=== PATIENT | female | born 1990 | race Caucasian/White ===

== ENCOUNTER 2021-04-09 15:57 | Emergency (ER) | payer OTHER, SELFPAY ==
--- NOTE | ~2021-04-09 | XR_ITS ---
EXAMINATION: PORTABLE CHEST 1 VIEW CLINICAL INFORMATION: Fever, chills, cough rule out pneumonia . COMPARISON: 12/18/2019. TECHNIQUE: Portable frontal view of the chest was obtained. FINDINGS: The lungs are well expanded. No focal infiltrate, effusion, edema, or pneumothorax. Cardiac and mediastinal silhouettes are within normal limits for technique. No acute bony abnormality seen. XR/XR chest 1V IMPRESSION: No evidence of acute disease.
[2021-04-09 16:52] VITALS: BP 127/66; PULSE 76; RESP 20; TEMP 37.2; O2SAT 100; BMI 23.8
--- NOTE | 2021-04-09 17:50 | ED.GENADULT ---
HPI - General Adult General Chief complaint: Upper Respiratory Symptoms Stated complaint: CP, SOB, COUGH Time Seen by Provider: 04/09/21 17:24 Source: patient Mode of arrival: ambulatory Limitations: language barrier (Japanese speaking only, air and water tester used) History of Present Illness HPI narrative: 30-year-old female who presents emergency department for evaluation of rhinorrhea, sore throat, subjective fever, chills, chest pain, shortness of breath and a cough. Patient states that she got sick yesterday and her symptoms have gotten worse. She complains of midsternal chest pain which is a sharp pain which is worse with breathing and with coughing. The pain is 5/10 at its worst. She states she has a cough which is persistent but nonproductive. She also is complaining of a headache which is located on top of her head, the pain is constant, sharp stabbing pain which is 10/10. She states she has had no appetite and has only been able to drink sips of fluid since the start of her symptoms. She is feeling weak and lightheaded. She states that she has diffuse body aches as well. She states that her 2 children are sick but their symptoms are mild compared to the patient's. The patient has not had a COVID-19 infection. She has not had a COVID-19 vaccination. Related Data Previous Rx's Medication Instructions Recorded metoclopramide HCl [Reglan] 10 mg PO Q6H PRN #14 tab 04/09/21 Allergies Allergy/AdvReac Type Severity Reaction Status Date / Time No Known Allergies Allergy Verified 04/09/21 16:51 [No Known Allergies*] Review of Systems Review of Systems: Yes all other systems are reviewed and are negative [facility] Past Medical History [facility] Narrative: Past medical hist of her asthma. She smokes 2-3 cigarettes per day x4 years. She denies alcohol and drug use. She is . She has 2 children that are 6 and 7 years old may have mild viral-like symptoms. Medical History (Updated 04/09/21 @ 19:21 by Dev Schulz MD) No known health problems Social History Social History Advance Directives: No Advance Directives Information Provided: Yes Patient : No Physical Exam Vital Signs: Vital Signs: Last Vital Signs Temp 98.9 F 04/09/21 16:52 Pulse 76 04/09/21 16:52 Resp 20 04/09/21 16:52 BP 127/66 04/09/21 16:52 Pulse Ox 100 04/09/21 16:52 Body Mass Index 23.8 Const: General: cooperative and other (Appears uncomfortable) Nutritional Appearance: thin Orientation/consciousness: oriented to person and oriented to place Limitations: no limitations HENMT: Head: Yes normal to inspection, Yes normocephalic and Yes atraumatic Ears: external ears normal General nose exam: Normal external nose present Face and sinus: Yes normal facial exam Mouth: Normal oral and palatal mucosa present Throat: Yes other (Posterior erythema with no exudate) Eyes: Periorbital: periorbital findings normal Eyelids: Yes eyelids normal Conjunctivae: conjunctivae normal Sclerae: sclerae normal Corneas: corneas normal Pupils: Equal, round and reactive pupils present Direct Ophthalmoscopy: normal light reflex Neck: Neck: Yes full ROM, Yes no lymphadenopathy, Yes no meningeal signs, Yes trachea midline and Yes supple Chest: Chest palpation & inspection: normal inspection of the chest and normal palpation of entire chest wall Resp: Effort & Inspection: normal respiratory effort and able to speak in complete sentences Auscultation: wheezes (Mild wheezing at the end of expiration) Cardio: Rate: regular rate Rhythm: regular rhythm Heart sounds: S1 normal heart sound present, S2 normal heart sound present and no murmurs GI: Inspection: Yes normal to inspection Palpation (GI): Soft to palpation, nontender, no guarding, not rigid and No hepatosplenomegaly present : General: Yes no CVA tenderness Back/Spine/Pelvis: Back: no CVA tenderness Cervical Spine: normal cervical lordosis Thoracic/Lumbar Spine: thoracic and lumbar spine normal to inspection Skin: Lesions: no lesions Rashes: no rashes Wounds: no wounds Neuro: General: oriented to person, oriented to place and no meningeal signs Cranial nerves: Yes CN's II-XII intact bilaterally and Yes Equal, round and reactive pupils present Cognition (Neuro): normal cognition Motor exam (neuro): 5/5 motor strength present throughout Extrem: General: Yes normal to inspection and Yes full ROM Psych: Appearance: well kempt Mental Status: mental status grossly normal Speech and movement: Normal speech and movement present Affect: normal affect Attitude: cooperative Thought process: Normal thought process present Thought content: Normal thought content present Course Course Course Narrative: year-old female with a history of asthma who presents with a viral-like illness times 24 hours. Patient is having pleuritic chest pain with fever, chills, anorexia, myalgias, nonproductive cough and sore throat. Patient's vital signs are stable with the O2 saturation 100% on room air. Given her anorexia and poor oral intake and her severe headache, I did order a COVID-19, influenza and RSV swab. Patient will be treated with normal saline x1 L. her headache and nausea will be treated with Reglan 10 mg IV, Benadryl 50 mg IV and Toradol 30 mg IV. 1917: Patient is feeling better after the above treatment. Chest x-ray revealed no evidence of pneumonia. The patient's COVID-19, influenza and RSV tests were negative. I did discuss this with the patient. Patient's presentation is consistent with an acute viral syndrome. I did tell her that there is a possibility of a false COVID-19 test as well. She was advised to stay home and follow the COVID-19 instructions. She was advised to take the following medications together for her headache: Reglan 10 mg, Benadryl 50 mg, ibuprofen 600 mg. She also advised to take Tylenol for her fevers. She was given printed and verbal instructions and discharged home. She was given a note not return to work until he 04/16/2021. Medical Decision Making Lab Data Labs: Lab Results 04/09/21 Range/Units Unknown Coronavirus (PCR) NEGATIVE (Negative) Influenza Type A (PCR) NEGATIVE (Negative) Influenza Type B (PCR) NEGATIVE (Negative) RSV RNA Qual (PCR) NEGATIVE (Negative) Discharge Plan Discharge Clinical Impression: Acute viral syndrome, Acute upper respiratory infection Patient Disposition: Home, Self-Care Instructions: COVID-19 (Coronavirus Disease 2019) (ED) Additional Instructions: For your headaches and nausea take the following 3 medications together every 6 hours as needed: Reglan 10 mg , 1 pill orally Benadryl 25 mg, 1 pill orally Ibuprofen 200 mg, 3 pills orally Take Tylenol (acetaminophen) 500 mg pills, 2 pills every 4 to 6 hours as needed for pain or fever. Follow-up with your doctor in 2 days. Please return to the emergency department if your symptoms get worse or if you develop any symptoms that are concerning to you. No work until 04/16/2021 Follow the COVID-19 instructions Prescriptions: New metoclopramide HCl [Reglan] 10 mg tablet 10 mg PO Q6H PRN (Reason: nausea and vomiting) Qty: 14 RF: 0 Stand Alone Forms: Work/School Release Print Language: Japanese
[2021-04-09 18:03] LABS: Influenza A PCR NEGATIVE (Negative); Influenza B PCR NEGATIVE (Negative); Resp Syncy Virus RNA Qual PCR NEGATIVE (Negative); SARS COV2 PCR INHOUSE NEGATIVE (Negative)
[2021-04-09] MEDS: 0.9 % Sodium Chloride 1,000 ML 999 ML IV (18:41)
[2021-04-09] MEDS: diphenhydrAMINE HCL 50 MG/ML VIAL IVPUSH (18:42)
[2021-04-09] MEDS: Ketorolac Tromethamine 30 MG/ML VIAL IVPUSH (18:43)
[2021-04-09] MEDS: Metoclopramide HCl 10 MG/2 ML VIAL IVPUSH (18:45)
--- NOTE | 2021-04-09 18:45 | PC.NURSE ---
IV inserted and pt medicated for headache.
== END 2021-04-09 20:04 | disposition home or self-care (01) ==
PROVIDERS: Emergency Provider Emergency Medicine Emergency Medical Services
DX: B34.9 Viral infection, unspecified (principal); J06.9 Acute upper respiratory infection, unspecified; R05 Cough; R07.81 Pleurodynia; Z20.822 Contact with and (suspected) exposure to COVID-19; Z79.899 Other long term (current) drug therapy
CPT/HCPCS: 0241U; 36415; 71045; 96365; 96375; 99283; 99284; J1200; J1885; J2765

== ENCOUNTER 2022-01-09 09:56 | Emergency (ER) | payer OTHER, SELFPAY ==
--- NOTE | ~2022-01-09 | CT_ITS ---
EXAMINATION: CT ABDOMEN AND PELVIS WITH CONTRAST CLINICAL INFORMATION: Lower abdominal pain, nausea and diarrhea for one week COMPARISON: Previous CT of the abdomen and pelvis December 2019 TECHNIQUE: Multidetector volumetric images were obtained from the superior aspect of the liver through the pubic symphysis following administration 85 mL of Omnipaque 350 intravenous contrast. Sagittal and coronal reformatted images were obtained on the technologist's workstation. Oral contrast: Yes This CT examination was performed using dose optimization techniques as appropriate, variously including the following: *Automated exposure control *Adjustment of mA and/or kV according to patient size (this includes techniques or standardized protocols for targeted exams where dose is matched to indication/reason for exam; i.e. extremities or head) *Use of iterative reconstruction technique DLP: 440 mGy-cm FINDINGS: LUNG BASES: The visualized lung bases are unremarkable. LIVER, GALLBLADDER, AND BILIARY TREE: The liver is normal in size, shape, and attenuation. No focal hepatic lesion or biliary ductal dilatation is present. The gallbladder is unremarkable with no evidence of radiopaque gallstones, gallbladder wall thickening, or obvious pericholecystic inflammatory changes. PANCREAS: Unremarkable. SPLEEN: Unremarkable. ADRENAL GLANDS: Unremarkable. KIDNEYS AND URETERS: The kidneys are normal in size, shape, and attenuation. No hydronephrosis, hydroureter, or calculi seen. No perinephric stranding. BLADDER: Unremarkable. GASTROINTESTINAL TRACT: There is a linear echogenic density in the cecum measuring 2 x 14 mm for example coronal reconstructed image 24. Appearance is questionable for surgical clip versus ingested foreign body. The small and large bowel are otherwise unremarkable. The appendix is normal. ABDOMINAL WALL: No significant hernia is appreciated. LYMPH NODES: Normal. VASCULAR: Unremarkable. PELVIC VISCERA: There are prominent pelvic vessels questionable for pelvic congestion. OSSEOUS STRUCTURES: Unremarkable. CT/CT abdomen pelvis w con IMPRESSION: 2 x 14 mm linear echogenic density in the cecum questionable for surgical clip versus ingested foreign body. Clinical correlation recommended. No inflammatory changes of the bowel, fluid or free air is seen. Prominent pelvic veins suggestive of pelvic congestion. Fleischner guidelines were followed.
[2022-01-09 10:04] VITALS: BP 110/77; PULSE 81; RESP 16; TEMP 36.8; O2SAT 99; BMI 25.5
[2022-01-09 10:38] VITALS: BP 120/57; PULSE 58; RESP 18; O2SAT 98
[2022-01-09 11:01] LABS: MANUAL DIFF FLAG NO
[2022-01-09 11:03] LABS: Basophils Percent Auto 0.3 % (0-2); Eosinophils Absolute Auto 0.2 X10*3/uL (0.0-0.4); Eosinophils Percent Auto 2.5 % (0-4); Hemoglobin 12.8 g/dl (12.0-16.0); Imm Gran Abs Auto 0.01 X10*3/uL (0.00-0.03); Imm Gran Pct Auto 0.1 % (0.0-0.4); Lymphocytes Absolute Auto 2.4 X10*3/uL (1.2-4.9); Lymphocytes Percent Auto 35.8 % (20-40); Mean Corpuscular HGB Conc 32.8 g/dl (31.0-35.0); Mean Corpuscular Hemoglobin 30.6 pg (27.0-33.0); Mean Corpuscular Volume 93.3 fL (80.0-98.0); Mean Platelet Volume 11.1 fL (9.4-12.3); Monocytes Absolute Auto 0.3 X10*3/uL (0.1-1.2); Monocytes Percent Auto 3.9 % (2-11); Neutrophils Absolute Auto 3.9 x10*3/uL (2.0-8.3); Neutrophils Percent Auto 57.4 % (45-73); Platelet Count 179 X10*3/uL (160-400); Red Blood Count 4.18 X10*6/uL (4.20-5.50); Red Cell Distribution Width 12.7 % (11.0-16.0); White Blood Count 6.7 X10*3/uL (4.8-10.8)
[2022-01-09 11:24] LABS: Alanine Aminotransferase 8 U/L (0-31); Albumin Level 3.8 g/dL (3.5-5.0); Alkaline Phosphatase 35 U/L (39-117); Anion Gap 7 (12-20); Aspartate Amino Transferase 15 U/L (5-31); Bilirubin Total 0.5 mg/dL (0.0-1.0); Blood Urea Nitrogen 11 mg/dL (9-16); Calcium 9.3 mg/dL (8.4-10.2); Carbon Dioxide 28 mmol/L (22-29); Chloride 108 mmol/L (96-108); Creatinine Clr Calc Pharmacy 98.5; Estimated Glomerular Filt Rate > 60; Glucose Random 94 mg/dL (60-115); Lipase 265 U/L (8-78); Magnesium 1.9 mg/dL (1.6-2.6); Potassium 4.4 mmol/L (3.3-5.1); Prothrombin Time 11.4 SEC (9.9-13.0); Sodium 139 mmol/L (135-145); Total Protein 6.2 g/dL (6.5-8.0)
[2022-01-09 11:27] LABS: HCG Quantitative < 2 mIU/mL
--- NOTE | 2022-01-09 12:31 | ED.ABDPAIN ---
HPI - Abdominal Pain General Chief Complaint: Abdominal Pain Stated Complaint: abd pain - sent from [facility] Time Seen by Provider: 01/09/22 10:05 Source: patient Mode of arrival: ambulatory Limitations: no limitations History of Present Illness HPI narrative: 31-year-old female with a past medical history of asthma, urinary calculi and tubal ligation presenting to the ED with complaints of lower abdominal pain and lower back pain for the past week with associated diarrhea and she had some nausea. She denies any fevers, chills, dizziness, headaches, neck pain/stiffness, trouble swallowing or breathing, sore throat, cough, chest pain or shortness of breath, on vomiting, recent travel or sick contacts, recent antibiotic usage, possible bad food exposure, dysuria, hematuria, dysuria, thoughts of STDs, abnormal vaginal, rashes or any other symptoms complaints or concerns at this time. Patient was seen at the urgent care prior to arrival and she had a a urine which she came with the results which was negative and she had a urine negative test as well MD elicited complaint: abdominal pain Pertinent past history: other (See above) Onset (ago): week(s) (1) Pain Consistency: constant Location: RLQ, LLQ and suprapubic Severity: mild Quality: aching Radiation: back Exacerbating factors: nothing Relieving factors: nothing Associated symptoms: nausea and diarrhea Related Data Patient : No Previous Rx's Medication Instructions Recorded metoclopramide HCl 10 mg tablet 10 mg PO Q6H PRN #14 tab 04/09/21 (Reglan) dicyclomine 20 mg tablet 20 mg PO BID #20 tab 01/09/22 ondansetron 4 mg disintegrating 4 mg PO Q6-8H PRN #14 tab 01/09/22 tablet Allergies Allergy/AdvReac Type Severity Reaction Status Date / Time No Known Allergies Allergy Verified 01/09/22 10:09 [No Known Allergies*] Review of Systems Review of Systems Constitutional : No Fever, No Chills, No Night Sweats, No Fatigue, No Malaise Cardiovascular : No Chest Pain, No SOB Respiratory : No Cough, No Sputum, No Wheezing, No Dyspnea Gastrointestinal : + Nausea, No Vomiting, No Diarrhea, + abdominal Pain, No Hematochezia, No Melena Genitourinary : No irregular bleeding, No Dysuria, No Urinary Frequency, No Hematuria,No Urinary Incontinence, No Urgency, No Flank Pain Musculoskeletal : No joint pain, No Myalgias, No Joint Swelling Skin : No Skin Lesions, No rash Neuro : No Weakness, No Numbness, No Paresthesias, No Loss of Consciousness, No Dizziness, No Headache Heme/Lymph: No Lymphadenopathy Endocrine : No Temperature Intolerance Yes all other systems are reviewed and are negative [facility] Past Medical History Attestation statement: The following information was validated with the patient. Medical History Asthma No known health problems Social History Social History Advance Directives: No Advance Directives Information Provided: No Patient : No Physical Exam ED Vital Signs: Vital Signs - 24 hr 01/09/22 10:04 01/09/22 10:38 Temperature 98.3 F Pulse Rate 81 58 Respiratory Rate 16 18 Blood Pressure 110/77 120/57 L Pulse Oximetry 99 98 BMI result Body Mass Index 25.5 Vital signs have been reviewed and all within normal limits Appearance: Alert. Oriented X3. No acute distress. Head: Normal external exam. Normocephalic. Eyes: PERRLA. EOMI. Conjunctiva and sclera normal. Eyelids normal. ENT: Pharynx normal. Uvula midline. Moist mucous membranes. Neck: Normal inspection. Neck supple. FROM. No adenopathy. No meningeal signs. CVS: Normal heart rate and rhythm. Heart sound normal. No murmurs noted. Pulses normal throughout. Respiratory: No respiratory distress. Painless inspiration. Breath sounds normal. No wheezes/rales/rhonchi noted. Chest nontender. No accessory muscle usage noted or decreased air movement noted. Abdomen: Soft and mild tenderness palpation to the right lower quadrant/suprapubic/left lower quadrant aspect of the abdomen Nondistended. No guarding. No rigidity. Bowel sounds normal in all 4 quadrants. No distention noted. No organomegaly noted. No visible injury noted. No rebound tenderness. Negative Rovsing sign. Negative obturator's sign. Negative psoas sign. Negative Carson sign. Back: No CVA tenderness. Full range of motion noted. Skin: Skin warm and dry. Normal skin color. Normal skin turgor. No rashes/lesions/lacerations noted. Extremities: Extremities exhibit normal range of motion. Extremities nontender. Neuro: Oriented X 3. No motor deficit. No sensory deficit. Reflexes normal. Normal steady gait. CN's II-XII intact bilaterally? Vascular: Normal pulses throughout. No cyanosis noted to fingernails or toenails Course Course Course Narrative: 10am - 31-year-old female with a past medical history of asthma, urinary calculi and tubal ligation presenting to the ED with complaints of lower abdominal pain and lower back pain for the past week with associated diarrhea and she had some nausea. Plan: Labs, UA, UHCG and a CT scan abdomen pelvis with IV contrast and provide some IV fluids and re-evaluate Reevaluation(s) Reevaluation #1: - Labs reviewed and patient anion gap 7. Alkaline phosphate 35. Total protein 6.2. Lipase 265. Patient negative for by blood. Otherwise all other labs are within normal limits - patient refused to give a repeat urine due to she reported that she had the urine at the [facility] [place] and was negative and she showed me the results and it was negative. Therefore I explained to her that we should at least do a gonorrhea chlamydia sample she does not have any thoughts of STDs therefore we will not treat at this time - CT scan abdomen and pelvis with IV contrast revealed a 2 x 14 mm echogenic density in the cecum questionable for surgical clip versus ingested foreign body. Patient denies any ingestion of foreign body this could possibly be her tubal ligation clip therefore explained to her that she needs to use protection due to if it moves she is at risk for . Otherwise it revealed prominent pelvic vein suggestive of pelvic congestion no other acute processes. Therefore patient does not want any more labs or imaging as she reports that she was here for a long time due to CT scan was delayed today therefore will DC home with symptomatic treatment and instructions return if any new or worsening symptoms to follow up with primary care provider/OBGYN. Patient understands agrees with this plan Time: 15:28 [facility] - Abdominal Pain Medical Records Attestation: I reviewed the patient's medical records. Lab Data Attestation: I reviewed the patient's lab results. Result diagrams: 01/09/22 10:56 01/09/22 10:56 Labs: Lab Results 01/09/22 01/09/22 01/09/22 Range/Units 10:56 10:56 10:56 WBC 6.7 (4.8-10.8) X10*3/uL RBC 4.18 L (4.20-5.50) X10*6/uL Hgb 12.8 (12.0-16.0) g/dl Hct 39.0 (37.0-47.0) % MCV 93.3 (80.0-98.0) fL MCH 30.6 (27.0-33.0) pg MCHC 32.8 (31.0-35.0) g/dl RDW 12.7 (11.0-16.0) % Plt Count 179 (160-400) X10*3/uL MPV 11.1 (9.4-12.3) fL Immature Gran % (Auto) 0.1 (0.0-0.4) % Neut % (Auto) 57.4 (45-73) % Lymph % (Auto) 35.8 (20-40) % [place] % (Auto) 3.9 (2-11) % Eos % (Auto) 2.5 (0-4) % Baso % (Auto) 0.3 (0-2) % Lymph # (Auto) 2.4 (1.2-4.9) X10*3/uL [place] # (Auto) 0.3 (0.1-1.2) X10*3/uL Eos # (Auto) 0.2 (0.0-0.4) X10*3/uL Baso # (Auto) 0.0 (0.0-0.2) X10*3/uL Abs Immat Gran (auto) 0.01 (0.00-0.03) X10*3/uL Absolute Neuts (auto) 3.9 (2.0-8.3) x10*3/uL Absolute Nucleated RBC 0.000 (0.0-0.012) X10*3/uL Nucleated RBC % (auto) 0.0 (0.0-0.2) /100WBC PT 11.4 (9.9-13.0) SEC INR 1.0 (0.9-1.1) Sodium 139 (135-145) mmol/L Potassium 4.4 (3.3-5.1) mmol/L Chloride 108 (96-108) mmol/L Carbon Dioxide 28 (22-29) mmol/L Anion Gap 7 L (12-20) BUN 11 (9-16) mg/dL Creatinine 0.73 (0.5-1.4) mg/dL Estim Creat Clear Calc 98.5 Estimated GFR > 60 Random Glucose 94 (60-115) mg/dL Calcium 9.3 (8.4-10.2) mg/dL Magnesium 1.9 (1.6-2.6) mg/dL Total Bilirubin 0.5 (0.0-1.0) mg/dL AST 15 (5-31) U/L ALT 8 (0-31) U/L Alkaline Phosphatase 35 L (39-117) U/L Total Protein 6.2 L (6.5-8.0) g/dL Albumin 3.8 (3.5-5.0) g/dL Lipase 265 H (8-78) U/L Beta HCG, Quant < 2 mIU/mL Imaging Data CT scan abdomen pelvis with IV contrast: Attestation: I personally reviewed and interpreted this imaging study as follows: Radiologist's impression: FINDINGS: LUNG BASES: The visualized lung bases are unremarkable.? LIVER, GALLBLADDER, AND BILIARY TREE: The liver is normal in size, shape, and attenuation. No focal hepatic lesion or biliary ductal dilatation is present. The gallbladder is unremarkable with no evidence of radiopaque gallstones, gallbladder wall thickening, or obvious pericholecystic inflammatory changes.? PANCREAS: Unremarkable.? SPLEEN: Unremarkable.? ADRENAL GLANDS: Unremarkable.? KIDNEYS AND URETERS: The kidneys are normal in size, shape, and attenuation. No hydronephrosis, hydroureter, or calculi seen. No perinephric stranding. ? BLADDER: Unremarkable.? GASTROINTESTINAL TRACT: There is a linear echogenic density in the cecum measuring 2 x 14 mm for example coronal reconstructed image 24. Appearance is questionable for surgical clip versus ingested foreign body. The small and large bowel are otherwise unremarkable. The appendix is normal. ABDOMINAL WALL: No significant hernia is appreciated.? LYMPH NODES: Normal. VASCULAR: Unremarkable. PELVIC VISCERA: There are prominent pelvic vessels questionable for pelvic congestion.? OSSEOUS STRUCTURES: Unremarkable.? CT/CT abdomen pelvis w con IMPRESSION: 2 x 14 mm linear echogenic density in the cecum questionable for surgical clip versus ingested foreign body. Clinical correlation recommended. No inflammatory changes of the bowel, fluid or free air is seen. Prominent pelvic veins suggestive of pelvic congestion. ? Fleischner guidelines were followed. Discharge Plan Discharge Clinical Impression: Abdominal pain, Abnormal computed tomography of abdomen and pelvis, Foreign body in cecum, Pelvic congestion Patient Disposition: Home, Self-Care Instructions: Abdominal Pain (ED) Additional Instructions: Usted tiene resultados de laboratorio pendientes si alguno es positivo, ser? contactado. Regrese si hay s?ntomas nuevos o que empeoran. Arjun un seguimiento con corral proveedor de atenci?n primaria y ginec?logo obstetra para detectar un posible clip de ligadura de trompas que se haya movido. Use protecci?n con el coito en chivo de que. You have pending lab results if any are positive you will be contacted. Return if any new or worsening symptoms. Follow up with her primary care provider and education associate for possible tubal ligation clip that has moved. Use protection with intercourse in case. Prescriptions: New dicyclomine 20 mg tablet 20 mg PO BID Qty: 20 0RF ondansetron 4 mg tablet,disintegrating 4 mg PO Q6-8H PRN (Reason: nausea and vomiting) Qty: 14 0RF No Action metoclopramide HCl [Reglan] 10 mg tablet 10 mg PO Q6H PRN (Reason: nausea and vomiting) Qty: 14 0RF Referrals: Raymundo Siddiqui MD [Physician] - 2 days Stand Alone Forms: Work/School Release Print Language: Thai
[2022-01-09] MEDS: iohexoL 350 MG/ML 100 ML INFUS..BTL IV (12:47)
[2022-01-09] MEDS: Ketorolac Tromethamine 30 MG/ML VIAL IVPUSH (13:48)
[2022-01-09] MEDS: ondansetron HCL 4 MG/2 ML VIAL IVPUSH (13:48)
[2022-01-09 16:06] LABS: Appearance Urine CLEAR; Color Urine YELLOW; Glucose Urine UA NEG (NEG); Leukocyte Esterase Urine NEG (NEG); Nitrite Urine NEG (NEG); PH 6.5 (5.0-8.0); Urine Blood NEG (NEG); Urine Ketones 15 MG/DL (NEG); Urine Protein NEG (NEG-TRACE)
[2022-01-09 18:17] LABS: CT PCR NOT DETECTED (Not Detect.); NG PCR NOT DETECTED (Not Detect.)
== END 2022-01-09 16:02 | disposition home or self-care (01) ==
PROVIDERS: Physician Assistant Medical; Emergency Provider Emergency Medicine
DX: R10.9 Unspecified abdominal pain (principal); N94.89 Other specified conditions associated with female genital organs and menstrual cycle; R93.5 Abnormal findings on diagnostic imaging of other abdominal regions, including retroperitoneum; T18.4XXA Foreign body in colon, initial encounter; Y99.9 Unspecified external cause status; Z98.51 Tubal ligation status; Z87.442 Personal history of urinary calculi
CPT/HCPCS: 36415; 74177; 80053; 81003; 83690; 83735; 84702; 85025; 85610; 87491; 87591; 96374; 96375; 99284; 99285; J1885; J2405; Q9967

== ENCOUNTER 2023-10-03 17:32 | Emergency (ER) | payer OTHER, SELFPAY ==
--- NOTE | ~2023-10-03 | XR_ITS ---
EXAMINATION: Bilateral ankle x-ray CLINICAL INFORMATION: Pain. Fall. COMPARISON: None. TECHNIQUE: 3 views of each ankle FINDINGS: Left: Bone alignment is normal. No fracture or dislocation. The ankle mortise is normal. There may be lateral soft tissue swelling. Right: Bone alignment is normal. No fracture or dislocation. The ankle mortise is normal. Lateral soft tissue swelling. XR/XR ankle RT min 3V IMPRESSION: Lateral soft tissue swelling. No fracture or dislocation.
--- NOTE | ~2023-10-03 | XR_ITS ---
EXAMINATION: Bilateral ankle x-ray CLINICAL INFORMATION: Pain. Fall. COMPARISON: None. TECHNIQUE: 3 views of each ankle FINDINGS: Left: Bone alignment is normal. No fracture or dislocation. The ankle mortise is normal. There may be lateral soft tissue swelling. Right: Bone alignment is normal. No fracture or dislocation. The ankle mortise is normal. Lateral soft tissue swelling. XR/XR ankle LT min 3V IMPRESSION: Lateral soft tissue swelling. No fracture or dislocation.
[2023-10-03 18:08] VITALS: BP 100/63; PULSE 73; RESP 18; O2SAT 100; BMI 24.6
[2023-10-03] MEDS: Ketorolac Tromethamine 30 MG/ML VIAL IM (19:24)
--- NOTE | 2023-10-03 19:44 | ED.GENADULT ---
HPI - General Adult General Chief complaint: Extremity Injury, Lower Stated complaint: Ankle inj at work Time Seen by Provider: 10/03/23 18:47 Source: patient Mode of arrival: ambulatory Limitations: no limitations History of Present Illness HPI narrative: This is a 33-year-old female presenting to the emergency department for bilateral ankle pain x2 days. Yesterday she rolled her right ankle and today she rolled her left ankle. She reports she rolled her ankle getting out of her work van. 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 Denies numbness, tingling, fevers, chills. Related Data Previous Rx's Medication Instructions Recorded metoclopramide HCl 10 mg tablet 10 mg PO Q6H PRN nausea and 04/09/21 (Reglan) vomiting #14 tabs dicyclomine 20 mg tablet 20 mg PO BID abdominal pain #20 01/09/22 tabs ondansetron 4 mg disintegrating 4 mg PO Q6-8H PRN nausea and 01/09/22 tablet vomiting #14 tabs ketorolac 10 mg tablet 10 mg PO TID PRN pain 5 days #15 10/03/23 tabs Allergies Allergy/AdvReac Type Severity Reaction Status Date / Time No Known Allergies Allergy Verified 01/09/22 10:09 [No Known Allergies*] Review of Systems Review of Systems: Constitutional : No Weight loss, No Fever, No Chills, No Fatigue, No Malaise ENT/Mouth : No sore throat, No Rhinorrhea Eyes: No Eye Pain, No Swelling, No Redness Cardiovascular : No Chest Pain, No SOB, No Dyspnea on Exertion, No Orthopnea, No Edema, No Palpitations Respiratory : No Cough, No Sputum, No Wheezing Gastrointestinal : No Nausea, No Vomiting, No Diarrhea, No Constipation, No abdominal Pain, No Hematochezia, No Melena Genitourinary : No Dysuria, No Urinary Frequency, No Hematuria, Musculoskeletal : + joint pain, No Myalgias, + Joint Swelling Skin : No Skin Lesions, No rash Neuro : No Weakness, No Numbness, No Dizziness, No Headache Psych : No Anxiety/Panic, No Depression All other systems reviewed and are negative PMFSH Past Medical History Attestation statement: The following information was validated with the patient. Source: old records reviewed and nursing notes reviewed Medical History Asthma No known health problems Social History Social History Advance Directives: No Advance Directives Information Provided: No Physical Exam ED Vital Signs: Vital Signs - 24 hr 10/03/23 18:08 Pulse Rate 73 Respiratory Rate 18 Blood Pressure 100/63 Pulse Oximetry 100 Oxygen Delivery Method Room Air BMI result Body Mass Index 24.6 vss Appearance: Alert.? Oriented X3.? No acute distress.? Head: Normocephalic, atraumatic, no step-offs or deformities Eyes: Pupils equal, round and reactive to light.? Neck: Normal inspection.? Neck supple.? CVS: Normal heart rate and rhythm.? Pulses normal.? Respiratory: No respiratory distress.? Breath sounds normal.? Abdomen: Soft and nontender.? Skin: Skin warm and dry.? Normal skin color.? Normal skin turgor.? Extremities: No lower extremity edema.? No calf ttp. 5/5 strength to bilateral upper and lower extremities + swelling to b/l ankles on lateral side. Normal sensation distally. Full painless ROM. 2+ DP,AT,PT equal and b.l. Ambulatory w/ steady gait normal coordination. Neuro: Oriented X 3.? No motor deficit.? No sensory deficit. CN 2-12 intact Course Reevaluation(s) Reevaluation #1: Lateral soft tissue swelling bilaterally. No fracture dislocation. Will discharge with ortho consult in [facility]. Educated patient on diagnosis and treatment plan, answered all question, patient verbalizes understanding. At this time patient will be discharged home, advised to return with new or worsening symptoms. Educated on worrisome signs and symptoms and when to return. At this time I feel comfortable discharge home. Time: 19:50 Medications Administered Discontinued Medications Generic Name Dose Route Start Last Admin Trade Name Freq PRN Reason Stop Dose Admin Ketorolac Tromethamine 30 mg 10/03/23 19:16 10/03/23 19:24 Ketorolac Tromethamine 30 Mg/Ml Vial IM 10/03/23 19:17 30 mg ONCE ONE Administration Medical Decision Making Medical Decision Making [facility] Narrative: 1929 33 yo f presents s/p rolling b/l ankles. PE- 5/5 strength to bilateral upper and lower extremities + swelling to b/l ankles on lateral side. Normal sensation distally. Full painless ROM. 2+ DP,AT,PT equal and b.l. Ambulatory w/ steady gait normal coordination. Likely sprain/strain. Unlikely fx/dislocation. NV compromise, threat to limb Plan- imaging Differential Diagnosis Differential Diagnoses: The differential diagnosis associated with the presentation includes Likely sprain/strain. Unlikely fx/dislocation. NV compromise, threat to limb Admission/Observation Consideration of admission/observation: Escalation of care including admission/observation considered unlikley Independent Interpretation I performed an independent interpretation of an: Plain X-Ray (XR/XR ankle RT min 3V IMPRESSION: Lateral soft tissue swelling. No fracture or dislocation.) Radiology Impression Discussion of test interpretation with radiology: I have reviewed the radiologist's reading. Discharge Plan Discharge Clinical Impression: Ankle sprain and strain Patient Disposition: Home, Self-Care Instructions: Ankle Sprain (ED), Ankle Sprain (DC), R.I.C.E. Treatment (ED) Additional Instructions: Take your medications as prescribed. If you were prescribed antibiotics today, it is important that you take your medication to their entirety, do not skip any doses, do not finish them early. Follow-up with your primary care provider this week. Return to the emergency department with new or worsening symptoms. Such as fevers, chills, chest pain, shortness of breath, nausea, vomiting, dizziness, headache, vision changes, lethargy In case of emergency call 911 Toradol has been sent to your pharmacy, you tolerated this well in the department. Please take this as prescribed do not take this with ibuprofen, or other NSAIDs, do not mix this with alcohol. Side effects of this medication including increased risk for bleeding and possible kidney injury. XR/XR ankle RT min 3V IMPRESSION: Lateral soft tissue swelling. No fracture or dislocation. Prescriptions: New ketorolac 10 mg tablet 10 mg PO TID PRN (Reason: pain) 5 Days Qty: 15 0RF No Action metoclopramide HCl [Reglan] 10 mg tablet 10 mg PO Q6H PRN (Reason: nausea and vomiting) Qty: 14 0RF dicyclomine 20 mg tablet 20 mg PO BID Qty: 20 0RF ondansetron 4 mg tablet,disintegrating 4 mg PO Q6-8H PRN (Reason: nausea and vomiting) Qty: 14 0RF Referrals: [facility] [Provider Group] - 2 days Physician,None [Primary Care Provider] - 2 days Stand Alone Forms: Work/School Release
== END 2023-10-03 19:58 | disposition home or self-care (01) ==
PROVIDERS: Emergency Provider Emergency Medicine
DX: S93.401A Sprain of unspecified ligament of right ankle, initial encounter (principal); S93.402A Sprain of unspecified ligament of left ankle, initial encounter; M25.572 Pain in left ankle and joints of left foot; M25.571 Pain in right ankle and joints of right foot; X50.1XXA Overexertion from prolonged static or awkward postures, initial encounter; Y93.9 Activity, unspecified; Y92.9 Unspecified place or not applicable; Y99.9 Unspecified external cause status; Z79.899 Other long term (current) drug therapy
CPT/HCPCS: 73610; 96372; 99283; 99284; J1885

== ENCOUNTER 2023-12-29 16:54 | Emergency (ER) | payer OTHER, SELFPAY ==
--- NOTE | 2023-12-29 18:01 | ED.GENADULT ---
HPI - General Adult General Chief complaint: Animal Bite Stated complaint: dog bite right thigh Time Seen by Provider: 12/29/23 19:17 Source: patient Mode of arrival: ambulatory Limitations: no limitations History of Present Illness HPI narrative: Patient comes to the emergency room complaining of a dog bite to the right thigh. 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 According to the patient, she talked to the dog's line haul owner operator, initially did dog's line haul owner operator stated that the patient is not up-to-date with immunizations, then seems that there was a change of story, stating that the patient is immunized. Patient did not sustain any other injuries. Related Data Previous Rx's Medication Instructions Recorded metoclopramide HCl 10 mg tablet 10 mg PO Q6H PRN nausea and 04/09/21 (Reglan) vomiting #14 tabs dicyclomine 20 mg tablet 20 mg PO BID abdominal pain #20 01/09/22 tabs ondansetron 4 mg disintegrating 4 mg PO Q6-8H PRN nausea and 01/09/22 tablet vomiting #14 tabs ketorolac 10 mg tablet 10 mg PO TID PRN pain 5 days #15 10/03/23 tabs amoxicillin 500 mg-potassium 1 tab PO BID #13 tabs 12/29/23 clavulanate 125 mg tablet (Augmentin) ibuprofen 600 mg tablet 600 mg PO TID PRN fever or pain 12/29/23 #20 tabs Allergies Allergy/AdvReac Type Severity Reaction Status Date / Time No Known Allergies Allergy Verified 01/09/22 10:09 [No Known Allergies*] Review of Systems Review of Systems: Constitutional : No Weight loss, No Fever, No Chills, No Night Sweats, No Fatigue, No Malaise ENT/Mouth : No Hearing loss, No Ear Pain, No Nasal Congestion, No Sinus Pain, No Hoarseness, No sore throat, No Rhinorrhea, No Swallowing Difficulty Eyes: No Eye Pain, No Swelling, No Redness, No Foreign Body, No Discharge, No Vision Changes Cardiovascular : No Chest Pain, No SOB, No Dyspnea on Exertion, No Orthopnea, No Edema, No Palpitations Respiratory : No Cough, No Sputum, No Wheezing, No Smoke Exposure, No Dyspnea Gastrointestinal : No Nausea, No Vomiting, No Diarrhea, No Constipation, No abdominal Pain, No Hematochezia, No Melena Genitourinary : no irregular bleeding, No Dysuria, No Urinary Frequency, No Hematuria, No Urinary Incontinence, No Urgency, No Flank Pain, No Urinary Flow Changes, No Hesitancy Musculoskeletal : No joint pain, No Myalgias, No Joint Swelling Skin : Dog bite to the right thigh Neuro : No Weakness, No Numbness, No Paresthesias, No Loss of Consciousness, No Dizziness, No Headache Psych : No Anxiety/Panic, No Depression, No SI/HI/AH/VH, No Social Issues, Heme/Lymph: No Bruising, No Bleeding,No Lymphadenopathy Endocrine : No Polyuria, No Polydipsia, No Temperature Intolerance [facility] Past Medical History Medical History Asthma No known health problems Social History Social History Advance Directives: No Advance Directives Information Provided: No Physical Exam ED Vital Signs: Vital Signs - 24 hr 12/29/23 18:02 12/29/23 19:25 Temperature 99.2 F 97.8 F Pulse Rate 78 73 Respiratory Rate 18 17 Blood Pressure 116/52 L 104/44 L Pulse Oximetry 97 98 Oxygen Delivery Method Room Air Room Air BMI result Body Mass Index 24.4 Const Other: Appearance: Alert. Oriented X3. No acute distress. Eyes: Pupils equal, round and reactive to light. ENT: Pharynx normal. Neck: Normal inspection. Neck supple. No lymph nodes noted. No crepitus CVS: Normal heart rate and rhythm. Pulses normal. Normal S1 and S2 Respiratory: No respiratory distress. Breath sounds normal. No Wheezing. No rales Abdomen: Soft and nontender. No rigidity. No distention. Skin: Skin warm and dry. Normal skin color. Normal skin turgor. See extremities below Extremities: No lower extremity edema. Patient has several puncture wounds to the right thigh, not currently bleeding. Neuro: Oriented X 3. No motor deficit. No sensory deficit. Moving all extremities. No slurred speech. CN 2 through 12 grossly intact Psych: calm, cooperative, normal affect Course Course Course Narrative: This is an RME: Additional HPI, ROS, PE not included below will be deferred to primary provider. 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 Not bleeding just swollen at this time. Animal control contacted and are looking into vaccination status of dog. Patient knows address of where this occurred. Medications Administered Discontinued Medications Generic Name Dose Route Start Last Admin Trade Name Freq PRN Reason Stop Dose Admin Acetaminophen 975 mg 12/29/23 18:03 12/29/23 18:08 Acetaminophen 325 Mg Tablet PO 12/29/23 18:04 975 mg ONCE ONE Administration Diphtheria/Tetanus/Acell Pertussis 0.5 ml 12/29/23 18:03 12/29/23 19:22 Diphth,Pertus(Acell),Tet Adult 0.5 Ml Syringe IM 12/29/23 18:04 0.5 ml .ONCE ONE Administration Medical Decision Making Medical Decision Making MDM Narrative: -patient receiving Tdap and Augmentin. Patient does not know when her last Tdap booster was -patient is concerned about the inconsistency of the story, whether the dog is fully immunized or not. Overall, seems that the dog belongs to a family. However, patient would prefer to be fully immunized for rabies. Patient aware that she will receive the 1st dose today of immune globulin and vaccine, and then she will have 3 more weeks appointments Differential Diagnosis Differential Diagnoses: The differential diagnosis associated with the presentation includes (Animal bite, puncture wound) Discharge Plan Discharge Clinical Impression: Dog bite Patient Disposition: Home, Self-Care Instructions: Animal Bite (ED), Rabies (ED) Additional Instructions: Please follow-up with your primary care physician tomorrow. If you have any worsening or new symptoms, please return to the emergency room or call 911 Prescriptions: New amoxicillin-pot clavulanate [Augmentin] 500-125 mg tablet 1 tab PO BID Qty: 13 0RF ibuprofen 600 mg tablet 600 mg PO TID PRN (Reason: fever or pain) Qty: 20 0RF No Action metoclopramide HCl [Reglan] 10 mg tablet 10 mg PO Q6H PRN (Reason: nausea and vomiting) Qty: 14 0RF dicyclomine 20 mg tablet 20 mg PO BID Qty: 20 0RF ondansetron 4 mg tablet,disintegrating 4 mg PO Q6-8H PRN (Reason: nausea and vomiting) Qty: 14 0RF ketorolac 10 mg tablet 10 mg PO TID PRN (Reason: pain) 5 Days Qty: 15 0RF
[2023-12-29 18:02] VITALS: BP 116/52; PULSE 78; RESP 18; TEMP 37.3; O2SAT 97; BMI 24.4
[2023-12-29] MEDS: Acetaminophen 325 MG TABLET 975 MG PO (18:08)
[2023-12-29] MEDS: Diphth,Pertus(ACell),Tet Adult 0.5 ML SYRINGE IM (19:22)
[2023-12-29 19:25] VITALS: BP 104/44; PULSE 73; RESP 17; TEMP 36.6; O2SAT 98
[2023-12-29] MEDS: Rabies Immune Globulin/PF 900 UNIT/3 ML VIAL 1210 UNIT IM (20:01)
[2023-12-29] MEDS: Rabies Vaccine, Human Diploid (Imovax) 1 ML VIAL IM (20:02)
[2023-12-29] MEDS: Amoxicillin/Potassium Clav 500 MG TABLET PO (20:06)
== END 2023-12-29 20:18 | disposition home or self-care (01) ==
PROVIDERS: Emergency Provider Emergency Medicine
DX: S71.151A Open bite, right thigh, initial encounter (principal); W54.0XXA Bitten by dog, initial encounter; Y93.01 Activity, walking, marching and hiking; Y92.480 Sidewalk as the place of occurrence of the external cause; Y99.0 Civilian activity done for income or pay; Z20.3 Contact with and (suspected) exposure to rabies
CPT/HCPCS: 90375; 90471; 90472; 90675; 90715; 96372; 99284

== ENCOUNTER 2024-01-01 11:06 | Outpatient (REF) | payer OTHER, SELFPAY | END 2024-01-01 11:07 | disposition home or self-care (01) | LOC: HO.MDS 11:06 | PROVIDERS: Visit Provider Emergency Medicine | DX: Z20.3 Contact with and (suspected) exposure to rabies (principal); S71.151D Open bite, right thigh, subsequent encounter; W54.0XXD Bitten by dog, subsequent encounter | CPT/HCPCS: 90471; 90675 ==

== ENCOUNTER 2024-01-05 14:54 | Outpatient (REF) | payer OTHER, SELFPAY | END 2024-01-05 14:55 | disposition home or self-care (01) | LOC: HO.MDS 14:54 | PROVIDERS: Visit Provider Emergency Medicine | DX: Z20.3 Contact with and (suspected) exposure to rabies (principal); S71.151D Open bite, right thigh, subsequent encounter; W54.0XXD Bitten by dog, subsequent encounter | CPT/HCPCS: 90471; 90675 ==

== ENCOUNTER 2024-01-13 14:57 | Outpatient (REF) | payer OTHER, SELFPAY | END 2024-01-13 14:58 | disposition home or self-care (01) | LOC: HO.MDS 14:57 | PROVIDERS: Visit Provider Emergency Medicine | DX: Z20.3 Contact with and (suspected) exposure to rabies (principal); S71.151D Open bite, right thigh, subsequent encounter; W54.0XXD Bitten by dog, subsequent encounter | CPT/HCPCS: 90471; 90675 ==

== ENCOUNTER 2024-02-06 09:51 | Outpatient (AMB) | payer OTHER, SELFPAY ==
--- NOTE | 2024-02-06 09:52 | AM.OFFWIN_ITS ---
Intake Vital Signs 02/06/24 09:55 Weight 131 lb BP 120/70 Blood Pressure Location Rt brachial Position Sitting Pulse 78 Pulse Source Pulse Oximeter Pulse Oximetry (%) 98 Oxygen Delivery Method Room Air Intake Visit Reasons: EP sore throat swollen hoarse Intake Note: Patient here for hoarse voice and SOB since Friday. Patient Tobacco Use Status: Current everyday Tobacco user Allergies No Known Allergies [No Known Allergies*] Allergy (Verified 02/06/24 09:56) Do you need a note to return to daycare/school/sports/work: Yes HPI HPI Comments History of Present Illness Details 33 y/o female who presents to walk in [facility] with c/o sore-throat, cough and headaches since Friday. Denies fevers, chills, nausea or vomiting. Daughter home sick with similar symptoms. She has not taken any OTC medications. [facility] Medical History Asthma No known health problems Social History Patient Tobacco Use Status: Current everyday Tobacco user Review of Systems Const All systems reviewed & are unremarkable except as noted in HPI and below Physical Exam Vital Signs: Last Vital Signs Pulse 78 02/06/24 09:55 BP 120/70 02/06/24 09:55 Pulse Ox 98 02/06/24 09:55 Oxygen Delivery Method Room Air 02/06/24 09:55 Const General: comfortable and no acute distress Orientation/consciousness: patient oriented x3 HEENT Head: Yes normocephalic Ears: external ears normal and TM's normal bilaterally General nose exam: Normal nasal mucous membranes and turbinates present Face and sinus: Yes sinuses nontender Mouth: moist mucous membranes Throat: Yes posterior oropharynx normal Resp Effort & Inspection: normal respiratory effort and able to speak in complete sentences Auscultation: clear to auscultation bilaterally, no crackles, no rales, no rhonchi and no wheezes Cardio Rate: regular rate Rhythm: regular rhythm Neuro General: patient oriented x3 and gait normal Psych Speech and movement: Normal speech and movement present Results AMB Rapid Strep AMB Rapid Strep Negative Last Edit by MIRIAN Garcia on 02/06/24 10:18 Results Reviewed Results Reviewed: Laboratory Last Values Strep Scn Rapid Clinic Negative 02/06/24 10:16 Assessment & Plan Assessment & Plan (1) Acute pharyngitis: Code(s): J02.9 - Acute pharyngitis, unspecified Qualifiers: Pharyngitis/tonsillitis etiology: unspecified etiology Qualified Code(s): J02.9 - Acute pharyngitis, unspecified Plan: - Rest and hydrate with warm fluids - OTC cold remedies (2) Cough in adult: Code(s): R05.9 - Cough, unspecified Plan: - Rest and hydrate with warm fluids - OTC cold remedies Orders: Orders AMB Rapid Strep Screen Today Z13.9 - Encounter for screening, unspecified SARS-CoV2/FLU/RSV Today J02.9 - Acute pharyngitis, unspecified, R05.9 - Cough, unspecified Medications: New azithromycin 500 mg PO DAILY 3 tabs 0RF 3 days J02.9 - Acute pharyngitis, unspecified, R05.9 - Cough, unspecified [id number] 5-10-100 mg/5 mL (Adult Robitussin Peak Cold M-S) 10 mL PO Q4H PRN 237 mL 0RF cold symptoms R05.9 - Cough, unspecified acetaminophen 1,000 mg (2 x 500 mg) PO Q6H PRN 30 caps 0RF fever R51.9 - Headache, unspecified Coding Level of Care Code Est Pt Level 3 (34194) Diagnoses Acute pharyngitis, unspecified etiology J02.9 Pharyngitis/tonsillitis etiology: unspecified etiology Cough in adult R05.9 Time Spent (min) 15
[2024-02-06 09:55] VITALS: BP 120/70; PULSE 78; O2SAT 98
== END 2024-02-06 11:00 | disposition home or self-care (01) ==
PROVIDERS: Visit Provider Nurse Practitioner Family
DX: J02.9 Acute pharyngitis, unspecified (principal); R05.9 Cough, unspecified
CPT/HCPCS: 87880; 99213

== ENCOUNTER 2024-02-06 10:22 | Outpatient (REF) | payer OTHER, SELFPAY ==
[2024-02-06 14:38] LABS: Influenza A PCR NEGATIVE (Negative); Influenza B PCR NEGATIVE (Negative); Resp Syncy Virus RNA Qual PCR NEGATIVE (Negative); SARS COV2 PCR INHOUSE NEGATIVE (Negative)
== END 2024-02-06 10:23 | disposition home or self-care (01) ==
LOC: HO.LAB 10:22
PROVIDERS: Visit Provider Nurse Practitioner Family
DX: J02.9 Acute pharyngitis, unspecified (principal); R05.9 Cough, unspecified
CPT/HCPCS: 0241U

== ENCOUNTER 2024-07-21 08:53 | Outpatient (AMB) | payer OTHER, SELFPAY ==
--- NOTE | 2024-07-21 09:04 | MHC.OFFWIV ---
Intake Vital Signs 07/21/24 09:07 Height 5 ft 2 in Weight 132 lb BMI 24.1 BP 110/60 Blood Pressure Location Lt brachial Position Sitting Pulse 60 Pulse Source Pulse Oximeter Pulse Oximetry (%) 99 Oxygen Delivery Method Room Air Intake Visit Reasons: ep-lower back pain Intake Note: Patient here for lower back pain that has been present for about 2 weeks. 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 Patient Tobacco Use Status: Current everyday Tobacco user Allergies No Known Allergies [No Known Allergies*] Allergy (Verified 07/21/24 09:09) Do you need a note to return to daycare/school/sports/work: Yes HPI HPI Comments History of Present Illness Details Patient is a 34-year-old female complaining of low back pain for 2 weeks. 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 She states she has been resting at a little bit but it isn't getting better. She denies any loss of control of her bladder or bowels or saddle paresthesias. She states she has used ibuprofen as well here and there but it does not really seem to be helping much. [facility] Medical History Asthma No known health problems Social History Patient Tobacco Use Status: Current everyday Tobacco user Review of Systems Const All systems reviewed & are unremarkable except as noted in HPI and below Physical Exam Vital Signs: Last Vital Signs Pulse 60 07/21/24 09:07 BP 110/60 07/21/24 09:07 Pulse Ox 99 07/21/24 09:07 Oxygen Delivery Method Room Air 07/21/24 09:07 BMI result Body Mass Index 24.1 Const General: cooperative, healthy appearing and comfortable Orientation/consciousness: patient oriented x3 HEENT Head: Yes normal to inspection and Yes normocephalic General nose exam: Normal external nose present Face and sinus: Yes normal facial exam Eyes General: appearance normal, both eyes and all related structures Resp Effort & Inspection: normal respiratory effort and able to speak in complete sentences Back/Spine/Pelvis Cervical Spine: cervical ROM normal and No Cervical spine tenderness Thoracic/Lumbar Spine: thoracic and lumbar spine normal to inspection, paraspinal muscle tenderness (low back) bilaterally, thoraco-lumbar ROM limited, No thoracic spinal tenderness and No lumbar spinal tenderness Neuro General: patient oriented x3 Assessment & Plan Assessment & Plan (1) Low back strain: Code(s): S39.012A - Strain of muscle, fascia and tendon of lower back, initial encounter Qualifiers: Encounter type: initial encounter Qualified Code(s): S39.012A - Strain of muscle, fascia and tendon of lower back, initial encounter Plan: Recommended she use ice or heat, as well as diclofenac gel, Aleve and as needed, muscle relaxers. Also wrote work note so patient could take a couple days off of work and rest her back. Recommended she follow up with her PCP if no improvement in her symptoms as she may need a physical therapy referral. Plan See above Medications: New cyclobenzaprine 5 mg PO TID PRN 10 tabs 0RF muscle spasm Coding Level of Care Code New Pt Level 3 (50084) Diagnoses Strain of lumbar region, initial encounter S39.012A Encounter type: initial encounter
[2024-07-21 09:07] VITALS: BP 110/60; PULSE 60; O2SAT 99; BMI 24.1
== END 2024-07-21 09:46 | disposition home or self-care (01) ==
PROVIDERS: Visit Provider Physician Assistant
DX: S39.012A Strain of muscle, fascia and tendon of lower back, initial encounter (principal); Z04.2 Encounter for examination and observation following work accident
CPT/HCPCS: 99203

== ENCOUNTER 2024-10-08 10:21 | Outpatient (AMB) | payer OTHER, SELFPAY ==
[2024-10-08 10:28] VITALS: BP 110/70; PULSE 72; TEMP 36.6; O2SAT 99
--- NOTE | 2024-10-08 10:28 | AM.OFFWIN_ITS ---
Intake Vital Signs 10/08/24 10:28 Height 5 ft 2 in BP 110/70 Blood Pressure Location Rt brachial Position Sitting Pulse 72 Pulse Source Pulse Oximeter Temp 97.9 F Temp Source Oral Pulse Oximetry (%) 99 Intake Visit Reasons: EP lower back pain mostly on her LT side Intake Note: pt is here for lower back pain, on left side going down leg Patient Tobacco Use Status: Current everyday Tobacco user Allergies No Known Allergies [No Known Allergies*] Allergy (Verified 10/08/24 10:28) Do you need a note to return to daycare/school/sports/work: No HPI HPI Comments History of Present Illness Details 34 y/o female patient who presents to [facility] walk in clinic with c/o left sided lower back pain since Friday. She injured her back at work, after a heavy Box fell on her back. She works at [employer]. [facility] Medical History Asthma No known health problems Social History Patient Tobacco Use Status: Current everyday Tobacco user Review of Systems Const All systems reviewed & are unremarkable except as noted in HPI and below Physical Exam Vital Signs: Last Vital Signs Temp 97.9 F 10/08/24 10:28 Pulse 72 10/08/24 10:28 BP 110/70 10/08/24 10:28 Pulse Ox 99 10/08/24 10:28 Const General: No comfortable Orientation/consciousness: patient oriented x3 Back/Spine/Pelvis Back: back tenderness Thoracic/Lumbar Spine: pain with thoraco-lumbar ROM, paraspinal muscle tenderness and lumbar spinal tenderness Neuro General: patient oriented x3, gait normal and moves all extremities Psych Speech and movement: Normal speech and movement present Assessment & Plan Assessment & Plan (1) Low back pain radiating to lower extremity: Code(s): M54.50 - Low back pain, unspecified; M79.606 - Pain in leg, unspecified Plan: Acetaminophen and NSAIDs for pain relief IceHot Rest, gave few days off RTC if pain persists. Medications: New cyclobenzaprine 10 mg PO BEDTIME 20 tabs 0RF M54.50 - Low back pain, unspecified, M79.606 - Pain in leg, unspecified lidocaine 5% leave on most painful area for up to 12 hrs 1 patch topical DAILY 30 ea 0RF M54.50 - Low back pain, unspecified, M79.606 - Pain in leg, unspecified meloxicam 7.5 mg PO DAILY 30 tabs 0RF M54.50 - Low back pain, unspecified, M79.606 - Pain in leg, unspecified Coding Level of Care Code Est Pt Level 3 (38730) Diagnoses Low back pain radiating to lower extremity M54.50; M79.606 Time Spent (min) 15
== END 2024-10-08 10:59 | disposition home or self-care (01) ==
PROVIDERS: Visit Provider Nurse Practitioner Family
DX: M54.50 Low back pain, unspecified (principal); M79.606 Pain in leg, unspecified

== ENCOUNTER → 2024-10-08 10:21 | Outpatient (BNVA) | payer OTHER, SELFPAY | PROVIDERS: Visit Provider Nurse Practitioner Family | DX: M54.50 Low back pain, unspecified (principal); M79.606 Pain in leg, unspecified | CPT/HCPCS: 99212 ==

== ENCOUNTER 2024-12-15 10:35 | Outpatient (AMB) | payer OTHER, SELFPAY ==
--- NOTE | 2024-12-15 11:31 | AM.OFFWIN_ITS ---
Intake Vital Signs 12/15/24 12:02 Height 5 ft 2 in Weight 131 lb BMI 24.0 BP 108/64 Blood Pressure Location Rt brachial Position Sitting Pulse 80 Pulse Source Pulse Oximeter Temp 98.1 F Temp Source Oral Pulse Oximetry (%) 98 Oxygen Delivery Method Room Air Intake Visit Reasons: EP Headache, body aches Intake Note: Patient here for headache, body aches and left ear pain that has started a few days ago. Patient Tobacco Use Status: Current everyday Tobacco user Allergies No Known Allergies [No Known Allergies*] Allergy (Verified 12/15/24 12:03) Do you need a note to return to daycare/school/sports/work: Yes HPI HPI Comments History of Present Illness Details This is a 34-year-old female with a past medical history of asthma presenting for evaluation of a headache, body aches, chills and left ear pain that she has had for the past 2 days. Patient denies having any fevers, cough, sore throat or pain in her right ear. Patient denies having any sick contacts. Patient is Urdu-speaking and is seen utilizing a translator/interpreter. [facility] Medical History Asthma No known health problems Social History Patient Tobacco Use Status: Current everyday Tobacco user Review of Systems Const All systems reviewed & are unremarkable except as noted in HPI and below Reports body aches, Reports chills, Denies fatigue, Denies fever(s) and Reports headache(s) Eyes Reports as per HPI and Reports no additional complaints ENT Reports otalgia (left), Reports headache(s) and Denies sinus pressure Card Reports no additional complaints Resp Reports no additional complaints, Denies chest congestion, Denies cough and Denies wheezing GI Reports no additional complaints and Denies nausea Reports no additional complaints Musc Reports no additional complaints Skin/Breast Reports system reviewed and no additional complaints, except as documented Neuro Reports no additional complaints and Reports headache(s) Psych Reports no additional complaints Endo Reports no additional complaints and Denies fatigue Isauro/Lymph Reports no additional complaints Aller/Immun Reports no additional complaints and Denies wheezing Physical Exam Vital Signs: Last Vital Signs Temp 98.1 F 12/15/24 12:02 Pulse 80 12/15/24 12:02 BP 108/64 12/15/24 12:02 Pulse Ox 98 12/15/24 12:02 Oxygen Delivery Method Room Air 12/15/24 12:02 BMI result Body Mass Index 24.0 Patient is afebrile. Const General: cooperative, healthy appearing, comfortable, no acute distress, well developed, alert, awake and Physically active; No ill appearing or lethargic Nutritional Appearance: average body habitus Orientation/consciousness: patient oriented x3 and No lethargic Limitations: no limitations HEENT Head: Yes normal to inspection and Yes normocephalic Ears: hearing grossly normal bilaterally, external ears normal, TM's normal bilaterally (No erythema left ear) and EAC's normal General nose exam: Normal external nose present Face and sinus: Yes normal facial exam and Yes sinuses nontender Mouth: Normal oral and palatal mucosa present and mucous membranes dry Throat: Yes posterior oropharynx normal and No postnasal drainage Eyes General: appearance normal, both eyes and all related structures Neck Lymphatic: no lymphadenopathy noted Resp Effort & Inspection: normal respiratory effort, able to speak in complete sentences, no audible wheezes, no cough and no respiratory distress Auscultation: clear to auscultation bilaterally Cardio Rate: regular rate Rhythm: regular rhythm Skin General skin exam: no rashes or lesions noted Neuro General: patient oriented x3 Psych Appearance: grossly normal Mental Status: mental status grossly normal Insight: Good insight present (Psych) Judgement: Good judgement present (Psych) Assessment & Plan Assessment & Plan (1) Acute upper respiratory infection: Comment: SARS panel pending; no evidence of otitis media or bacterial pharyngitis Code(s): J06.9 - Acute upper respiratory infection, unspecified Plan: SARS panel is obtained and pending. Patient will use Tylenol or ibuprofen for body aches and otalgia. Work note is provided for 2 days. Orders: Orders SARS-CoV2/FLU/RSV Today J06.9 - Acute upper respiratory infection, unspecified Coding Level of Care Code Est Pt Level 3 (82152) Diagnoses Acute upper respiratory infection J06.9 Time Spent (min) 20
[2024-12-15 12:02] VITALS: BP 108/64; PULSE 80; TEMP 36.7; O2SAT 98; BMI 24.0
== END 2024-12-15 12:38 | disposition home or self-care (01) ==
PROVIDERS: Visit Provider Physician Assistant
DX: J06.9 Acute upper respiratory infection, unspecified (principal)

== ENCOUNTER 2024-12-15 10:35 | Outpatient (REF) | payer OTHER, SELFPAY ==
[2024-12-15 14:10] LABS: Influenza A PCR NEGATIVE (Negative); Influenza B PCR NEGATIVE (Negative); Resp Syncy Virus RNA Qual PCR NEGATIVE (Negative); SARS COV2 PCR INHOUSE NEGATIVE (Negative)
== END 2024-12-15 10:36 | disposition home or self-care (01) ==
LOC: HO.LNP 10:35
PROVIDERS: Visit Provider Physician Assistant
DX: J06.9 Acute upper respiratory infection, unspecified (principal)
CPT/HCPCS: 0241U; 99212

== ENCOUNTER 2024-12-30 18:27 | Emergency (ER) | payer OTHER, SELFPAY ==
--- NOTE | ~2024-12-30 | CT_ITS ---
CLINICAL HISTORY: trauma CT cervical spine without contrast Comparison: None Findings: Normal vertebral body alignment. No significant degenerative change. No acute fractures or dislocations. No acute findings on limited view of the intracranial contents. No cervical fluid collections or masses. No consolidation or effusion at the lung apices. IMPRESSION: No acute findings. This document has been electronically signed by: Gloria Hernandez MD on 12/30/2024 22:14:10
--- NOTE | ~2024-12-30 | CT_ITS ---
CLINICAL HISTORY: trauma CT head without contrast Comparison: None Findings: No intra-axial mass, midline shift, hydrocephalus, or acute hemorrhage. No significant atrophy-like change or white matter disease. The visualized paranasal sinuses and mastoid air cells are normal. The orbits are within normal limits. No skull fracture. IMPRESSION: 1. No acute intracranial findings. Specifically, no acute intracranial hemorrhage. This document has been electronically signed by: Gloria Hernandez MD on 12/30/2024 22:18:59
--- NOTE | ~2024-12-30 | XR_ITS ---
CLINICAL HISTORY: trauma CHEST AND RIGHT RIBS X-RAYS COMPARISON: 04/09/2021. FINDINGS: A total of 4 views of the chest and right ribs were obtained. Cardiac size is within normal limits. No focal infiltrate or consolidation. No pleural effusion or pneumothorax. Dedicated imaging of the right-sided ribs was performed. There is no evidence of an acute fracture. Chronic mild deformity of the right 6th rib is again noted. IMPRESSION: 1. No acute disease. This document has been electronically signed by: Casey Bernardo M.D. on 12/30/2024 21:54:37
[2024-12-30 18:34] VITALS: BP 131/68; PULSE 93; RESP 20; TEMP 36.9; O2SAT 97; BMI 23.8
--- NOTE | 2024-12-30 18:37 | ED.FALL ---
HPI - Fall General Chief Complaint: Fall Stated Complaint: fell and hit back of head 2/6 Time Seen by Provider: 12/30/24 23:05 Source: patient, RN notes reviewed and old records reviewed Mode of arrival: ambulatory Limitations: language barrier (Patient declined foreign language interpreter) History of Present Illness ED Provider: Chaz HPI Narrative: 34-year-old female presents for evaluation after a fall. Patient reports that she works for [employer]. A few hours prior to arrival she was at work. 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 She states that due to the ice she slipped and fell onto her right side She struck the right side of her head on the ground She thinks she may have lost consciousness for a second She reports right-sided neck pain and right upper back pain and right rib pain Related Data Previous Rx's ?Medication ?Instructions ?Recorded cyclobenzaprine 5 mg tablet 5 mg PO TID PRN muscle spasm #15 12/30/24 tabs Allergies Allergy/AdvReac Type Severity Reaction Status Date / Time No Known Allergies Allergy Verified 12/30/24 18:36 [No Known Allergies*] Review of Systems Constitutional: Constitutional: Denies body ache(s), Denies chills, Denies frequent falls and Reports headache(s) Eyes: Eyes: Denies blurry vision ENT: Denies vertigo, Denies dizziness, Reports headache(s) and Reports neck pain Cardiovascular: Cardiovascular: Reports chest pain (Right chest wall pain) and Denies dyspnea Respiratory: Respiratory: Denies dyspnea Gastrointestinal: Gastrointestinal: Denies abdominal pain Musculoskeletal: Musculoskeletal: Reports back pain, Reports neck pain and Reports stiffness Integumentary/Breasts: Skin/Breast: Denies rash Neurologic: Denies vertigo, Denies dizziness, Denies frequent falls and Reports headache(s) [facility] Past Medical History Medical History Asthma No known health problems Social History Social History Patient Tobacco Use Status: Current everyday Tobacco user Advance Directives: No Advance Directives Information Provided: Yes Do you have a plan to hurt others: No Plan Physical Exam Vital Signs: Vital Signs: Last Vital Signs Temp 97.9 F 12/30/24 22:27 Pulse 88 12/30/24 22:27 Resp 16 12/30/24 22:27 BP 118/58 L 12/30/24 22:27 Pulse Ox 98 12/30/24 22:27 O2 Del Method Room Air 12/30/24 22:27 BMI result Body Mass Index 23.8 Const: General: healthy appearing, comfortable, no acute distress, alert and awake Nutritional Appearance: well nourished Orientation/consciousness: patient oriented x3 HEENT: Head: Yes normocephalic and Yes atraumatic Eyes: Eyelids: Yes eyelids normal Conjunctivae: conjunctivae normal Sclerae: sclerae normal Corneas: corneas normal Pupils: Equal, round and reactive pupils present EOM: EOMs intact bilaterally Resp: Effort & Inspection: normal respiratory effort, able to speak in complete sentences and not labored Back/Spine/Pelvis: Cervical Spine: No collar present, cervical muscular tenderness (Right sided paraspinous muscle tenderness) and No Cervical spine tenderness Skin: General skin exam: elasticity normal Neuro: General: patient oriented x3 Cranial nerves: Yes CN's II-XII intact bilaterally, Yes Equal, round and reactive pupils present and Yes Bilaterally intact EOM present Cognition (Neuro): normal cognition Course Course Course Narrative: This is a rapid medical exam performed by Lucy Alvares PA-C. Patient is a 34-year-old female who presents after fall. Patient states she slipped and fell in the snow today, landing on her right side, hitting her head on the ground and striking her right lateral chest. Patient complains of right-sided headache with dizziness and nausea, right lateral rib pain and right neck pain. Denies loss of consciousness, the patient does not use blood thinners. On exam, there was no evidence of trauma. Patient is hemodynamically stable and can return to the waiting room pending her full medical assessment. Medical Decision Making Medical Decision Making MDM Narrative: 34-year-old female presents for evaluation of headache and right-sided chest wall pain after falling off of her work truck. She has a reassuring exam, stable vital signs. She is unsure if she lost consciousness and therefore she had a brain CT and cervical spine CT ordered. These did not show any evidence of traumatic injury. The patient also had right-sided rib x-rays ordered that did not show any evidence of pneumothorax or obvious displaced rib fractures. I discussed these findings with the patient, she will be discharged with symptomatic care Differential Diagnosis Differential Diagnoses: The differential diagnosis associated with the presentation includes Concussion Minor head injury Intracranial hemorrhage Cervical fracture Muscle spasm Rib fracture Lab Data Labs: Lab Results 12/30/24 Range/Units 21:34 Beta HCG, Quant < 2 mIU/mL Radiology Impression Discussion of test interpretation with radiology: I have reviewed the radiologist's reading. Radiologist Impression: Findings: No intra-axial mass, midline shift, hydrocephalus, or acute hemorrhage. No significant atrophy-like change or white matter disease. The visualized paranasal sinuses and mastoid air cells are normal. The orbits are within normal limits. No skull fracture. IMPRESSION: 1. No acute intracranial findings. Specifically, no acute intracranial hemorrhage. This document has been electronically signed by: Gloria Hernandez MD on 12/30/2024 22:18:59 Findings: Normal vertebral body alignment. No significant degenerative change. No acute fractures or dislocations. No acute findings on limited view of the intracranial contents. No cervical fluid collections or masses. No consolidation or effusion at the lung apices. IMPRESSION: No acute findings. This document has been electronically signed by: Gloria Hernandez MD on 12/30/2024 22:14:10 Discharge Plan Discharge Clinical Impression: Minor closed head injury Patient Disposition: Home, Self-Care Instructions: Head Injury (ED) Additional Instructions: Your images including a CT scan of your brain, cervical spine and x-rays did not show any evidence of traumatic injury. You will likely be sore due to muscle spasms. Use ibuprofen/Tylenol for pain. Use cyclobenzaprine as needed for muscle spasms. This may make you drowsy, do not drink alcohol or drive after taking it Prescriptions: New cyclobenzaprine 5 mg tablet 5 mg PO TID PRN (Reason: muscle spasm) Qty: 15 0RF Stand Alone Forms: Work/School Release Discharge Date/Time: 12/31/24 00:12 Print Language: Surinamese
[2024-12-30 22:10] LABS: HCG Quantitative < 2 mIU/mL
[2024-12-30 22:27] VITALS: BP 118/58; PULSE 88; RESP 16; TEMP 36.6; O2SAT 98
== END 2024-12-31 00:12 | disposition home or self-care (01) ==
PROVIDERS: Physician Assistant Medical; Emergency Provider Emergency Medicine
DX: S09.90XA Unspecified injury of head, initial encounter (principal); R51.9 Headache, unspecified; M54.2 Cervicalgia; R07.81 Pleurodynia; W01.0XXA Fall on same level from slipping, tripping and stumbling without subsequent striking against object, initial encounter; Y93.01 Activity, walking, marching and hiking; Y92.89 Other specified places as the place of occurrence of the external cause; Y99.0 Civilian activity done for income or pay
CPT/HCPCS: 36415; 70450; 71101; 72125; 84702; 99283; 99284

== ENCOUNTER → 2024-12-30 18:35 | Outpatient (BNV) | payer OTHER, SELFPAY | PROVIDERS: Visit Provider Radiology Diagnostic Radiology | DX: R07.82 Intercostal pain (principal) | CPT/HCPCS: 70450; 71101; 72125 ==

== ENCOUNTER 2025-02-18 07:49 | Emergency (ER) | payer OTHER, SELFPAY ==
--- NOTE | ~2025-02-18 | US_ITS ---
EXAMINATION: US ABDOMEN LIMITED HISTORY: RUQ pain, GB only please TECHNIQUE: Real-time grayscale ultrasound imaging of the right upper quadrant was performed and images were reviewed. COMPARISON: Correlation is made with a CT of the abdomen with contrast dated 01/09/2022. FINDINGS: Sonographic examination of the gallbladder was performed. No gallstones are identified. There is no wall thickening or pericholecystic fluid. The common bile duct is normal in caliber measuring 3 mm in diameter. US/US abdomen limited IMPRESSION: Unremarkable ultrasound of the gallbladder. Electronically signed by: Hernando Pacheco MD 02/18/2025 09:06 AM EDT
[2025-02-18 07:57] VITALS: BP 109/68; PULSE 98; RESP 18; TEMP 36.8; O2SAT 99; BMI 23.6
--- NOTE | 2025-02-18 08:11 | ED_ITS ---
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 No fevers, no urinary symptoms, no sick contacts, no food exposures, no recent abx use. She thought she would be better the next day but now she is tired, the pain is worse, headaches. She has never had this before. She denies any GIB symptoms. Only prior surgery is tubal ligation. MD complaint: abdominal pain nausea diarrhea headaches Onset (ago): day(s) (4) Location: head and abdomen Radiation: non-radiation Severity: moderate Quality: aching Pain Consistency: constant Relieving factors: none Exacerbating factors: eating and movement Associated symptoms: headaches, loss of appetite, malaise, nausea/vomiting and weakness Treatments prior to arrival: none Related Data Previous Rx's ?Medication ?Instructions ?Recorded cyclobenzaprine 5 mg tablet 5 mg PO TID PRN muscle spasm #15 12/30/24 tabs famotidine 20 mg tablet (Pepcid) 20 mg PO DAILY PRN abdominal 02/18/25 discomfort #30 tabs ondansetron 4 mg disintegrating 4 mg PO Q8H PRN nausea and 02/18/25 tablet vomiting #20 tabs Allergies Allergy/AdvReac Type Severity Reaction Status Date / Time No Known Allergies Allergy Verified 02/18/25 08:00 [No Known Allergies*] Review of Systems 2 Review of Systems: Constitutional : No Weight loss, No Fever, No Chills ENT/Mouth : No sore throat, No Rhinorrhea Eyes: No Swelling, No Redness Cardiovascular : No Chest Pain, No SOB, NoEdema Respiratory : No Cough, No Sputum, No Wheezing Gastrointestinal : Positive Nausea, no Vomiting, positive Diarrhea, positive abdominal Pain, No Hematochezia, No Melena Genitourinary : No Dysuria, No Urinary Frequency, No Hematuria, No Urgency Musculoskeletal : No joint pain, No Myalgias, No Joint Swelling Skin : No Skin Lesions, No rash Neuro : No Weakness, No Numbness, No Dizziness, pos Headache Psych : No Anxiety/Panic, No Depression All other systems reviewed and are negative. COUNTS INCLUDE 234 BEDS AT THE [facility] Past Medical History Attestation statement: The following information was validated with the patient. Source: old records reviewed Medical History Asthma No known health problems Social History Social History Patient Tobacco Use Status: Current everyday Tobacco user Advance Directives: No Advance Directives Information Provided: Yes Physical Exam ED Vital Signs: Vital Signs - 24 hr 02/18/25 07:57 02/18/25 08:55 Temperature 98.2 F Pulse Rate 98 74 Respiratory Rate 18 16 Blood Pressure 109/68 107/67 Pulse Oximetry 99 99 Oxygen Delivery Method Room Air Room Air BMI result Body Mass Index 23.6 Appearance: Alert. Oriented X3. No acute distress. Eyes: Pupils equal, round and reactive to light. ENT: Pharynx normal. Neck: Normal inspection. Neck supple. CVS: Normal heart rate and rhythm. Pulses normal. Respiratory: No respiratory distress. Breath sounds normal. Abdomen: Soft and moderate epigastric and RUQ pain with + serrano's sign Skin: Skin warm and dry. Normal skin color. Normal skin turgor. Extremities: No lower extremity edema. No calf ttp Neuro: Oriented X 3. No motor deficit. No sensory deficit. CN2-12 intact Medications Administered Discontinued Medications Generic Name Dose Route Start Last Admin Trade Name Freq PRN Reason Stop Dose Admin Lactated Ringer's 1,000 mls @ 999 mls/hr 02/18/25 08:31 02/18/25 10:06 Lr IV 02/18/25 09:31 Infused .Q1H1M ONE Infusion Ketorolac Tromethamine 15 mg 02/18/25 08:31 02/18/25 09:03 Ketorolac Tromethamine 15 Mg/Ml Vial IVPUSH 02/18/25 08:32 15 mg ONCE ONE Administration Ondansetron HCl 4 mg 02/18/25 08:31 02/18/25 09:03 Ondansetron Hcl 4 Mg/2 Ml Vial IVPUSH 02/18/25 08:32 4 mg ONCE ONE Administration Medical Decision Making Medical Decision Making MDM Narrative: 34 yo female with PMH of asthma, renal colic, tubal ligation who presents with c/o here with nausea, diarrhea, weakness headaches and RUQ/epigastric pain since Friday that is not getting better she denies any risk factors at this time will obtain labs, hydrate, toradol and zofran for pain - could be viral or gastritis or biliary colic - US ordered to evaluate the GB Differential Diagnosis Differential Diagnoses: The differential diagnosis associated with the presentation includes viral syndrome, gastritis, dehydration, biliary colic Admission/Observation Consideration of admission/observation: Escalation of care including admission/observation considered tolerating PO, labs and US reassuring feels better Lab Data MDM Lab Attestation statement: I reviewed the patient's lab results. 02/18/25 08:54 02/18/25 08:54 Labs: Lab Results 02/18/25 Range/Units 08:54 WBC 4.5 L (4.8-10.8) X10*3/uL RBC 4.42 (4.20-5.50) X10*6/uL Hgb 13.8 (12.0-16.0) g/dl Hct 39.9 (37.0-47.0) % MCV 90.3 (80.0-98.0) fL MCH 31.2 (27.0-33.0) pg MCHC 34.6 (31.0-35.0) g/dl RDW 13.1 (11.0-16.0) % Plt Count 211 (160-400) X10*3/uL MPV 10.1 (9.4-12.3) fL Immature Gran % (Auto) 0.2 (0.0-0.4) % Neut % (Auto) 57.1 (45-73) % Lymph % (Auto) 32.0 (20-40) % Henry % (Auto) 4.9 (2-11) % Eos % (Auto) 4.9 H (0-4) % Baso % (Auto) 0.9 (0-2) % Lymph # (Auto) 1.5 (1.2-4.9) X10*3/uL Henry # (Auto) 0.2 (0.1-1.2) X10*3/uL Eos # (Auto) 0.2 (0.0-0.4) X10*3/uL Baso # (Auto) 0.0 (0.0-0.2) X10*3/uL Abs Immat Gran (auto) 0.01 (0.00-0.03) X10*3/uL Absolute Neuts (auto) 2.6 (2.0-8.3) x10*3/uL Absolute Nucleated RBC 0.000 (0.0-0.012) X10*3/uL Nucleated RBC % (auto) 0.0 (0.0-0.2) /100WBC Sodium 138 (135-145) mmol/L Potassium 4.0 (3.3-5.1) mmol/L Chloride 109 H (96-108) mmol/L Carbon Dioxide 26 (22-29) mmol/L Anion Gap 7 L (12-20) BUN 15 (9-16) mg/dL Creatinine 0.74 (0.5-1.4) mg/dL Estim Creat Clear Calc 85.5 Estimated GFR > 60 Random Glucose 98 (60-115) mg/dL Calcium 9.1 (8.4-10.2) mg/dL Magnesium 1.8 (1.6-2.6) mg/dL Total Bilirubin 0.6 (0.0-1.0) mg/dL Direct Bilirubin 0.2 (0.0-0.5) mg/dL AST 44 H (5-31) U/L ALT 37 H (0-31) U/L Alkaline Phosphatase 42 (39-117) U/L Total Protein 6.4 L (6.5-8.0) g/dL Albumin 3.8 (3.5-5.0) g/dL Lipase 41 (8-78) U/L Influenza Type A (PCR) NEGATIVE (Negative) Influenza Type B (PCR) NEGATIVE (Negative) RSV RNA Qual (PCR) NEGATIVE (Negative) SARS-CoV-2 RNA (RT-PCR) NEGATIVE (Negative) Independent Interpretation I performed an independent interpretation of an: Ultrasound (normal ) Radiology Impression Discussion of test interpretation with radiology: I have reviewed the radiologist's reading. External Record Review External record reviewed: Outpatient record Prescription Management I considered prescription management with: Other Discharge Plan Discharge Clinical Impression: Diarrhea, Acute upper abdominal pain Patient Disposition: Home, Self-Care Instructions: Acute Diarrhea (ED), Abdominal Pain (ED) Additional Instructions: mild bump in liver enzymes but minimal and can be repeated with your doctor next week ultrasound normal no acute findings negative for COVID, FLU, RSV rest and stay hydrated return for worsening symptoms, fevers, bloody stools, unable to eat or drink or any other concerns Prescriptions: New famotidine [Pepcid] 20 mg tablet 20 mg PO DAILY PRN (Reason: abdominal discomfort) Qty: 30 0RF ondansetron 4 mg tablet,disintegrating 4 mg PO Q8H PRN (Reason: nausea and vomiting) Qty: 20 0RF No Action cyclobenzaprine 5 mg tablet 5 mg PO TID PRN (Reason: muscle spasm) Qty: 15 0RF Stand Alone Forms: Work/School Release Print Language: Yi
[2025-02-18 08:55] VITALS: BP 107/67; PULSE 74; RESP 16; O2SAT 99
[2025-02-18 09:01] LABS: MANUAL DIFF FLAG NO
[2025-02-18 09:03] LABS: Basophils Percent Auto 0.9 % (0-2); Eosinophils Absolute Auto 0.2 X10*3/uL (0.0-0.4); Eosinophils Percent Auto 4.9 % (0-4); Hematocrit 39.9 % (37.0-47.0); Hemoglobin 13.8 g/dl (12.0-16.0); Imm Gran Abs Auto 0.01 X10*3/uL (0.00-0.03); Imm Gran Pct Auto 0.2 % (0.0-0.4); Lymphocytes Absolute Auto 1.5 X10*3/uL (1.2-4.9); Mean Corpuscular HGB Conc 34.6 g/dl (31.0-35.0); Mean Corpuscular Hemoglobin 31.2 pg (27.0-33.0); Mean Corpuscular Volume 90.3 fL (80.0-98.0); Mean Platelet Volume 10.1 fL (9.4-12.3); Monocytes Absolute Auto 0.2 X10*3/uL (0.1-1.2); Monocytes Percent Auto 4.9 % (2-11); Neutrophils Absolute Auto 2.6 x10*3/uL (2.0-8.3); Neutrophils Percent Auto 57.1 % (45-73); Platelet Count 211 X10*3/uL (160-400); Red Blood Count 4.42 X10*6/uL (4.20-5.50); Red Cell Distribution Width 13.1 % (11.0-16.0); White Blood Count 4.5 X10*3/uL (4.8-10.8)
[2025-02-18] MEDS: Ketorolac Tromethamine 15 MG/ML VIAL IVPUSH (09:03)
[2025-02-18] MEDS: Lactated Ringers 1,000 ML 999 ML IV (09:03)
[2025-02-18] MEDS: ondansetron HCL 4 MG/2 ML VIAL IVPUSH (09:03)
[2025-02-18 09:21] LABS: Alanine Aminotransferase 37 U/L (0-31); Albumin Level 3.8 g/dL (3.5-5.0); Alkaline Phosphatase 42 U/L (39-117); Anion Gap 7 (12-20); Aspartate Amino Transferase 44 U/L (5-31); Bilirubin Direct 0.2 mg/dL (0.0-0.5); Bilirubin Total 0.6 mg/dL (0.0-1.0); Blood Urea Nitrogen 15 mg/dL (9-16); Calcium 9.1 mg/dL (8.4-10.2); Carbon Dioxide 26 mmol/L (22-29); Chloride 109 mmol/L (96-108); Creatinine Clr Calc Pharmacy 85.5; Estimated Glomerular Filt Rate > 60; Glucose Random 98 mg/dL (60-115); Lipase 41 U/L (8-78); Magnesium 1.8 mg/dL (1.6-2.6); Sodium 138 mmol/L (135-145); Total Protein 6.4 g/dL (6.5-8.0)
[2025-02-18 09:42] LABS: Influenza A PCR NEGATIVE (Negative); Influenza B PCR NEGATIVE (Negative); Resp Syncy Virus RNA Qual PCR NEGATIVE (Negative); SARS COV2 PCR INHOUSE NEGATIVE (Negative)
[2025-02-18 11:51] LABS: Appearance Urine Clear; Color Urine Yellow; Glucose Urine UA Negative (Negative); Leukocyte Esterase Urine Negative (Negative); Nitrite Urine Negative (Negative); PH 6.5 (5.0-9.0); Urine Blood Negative (Negative); Urine Ketones Negative (Negative); Urine Protein Negative (Neg-Trace)
[2025-02-18 12:32] VITALS: BP 107/61; PULSE 65; RESP 16; TEMP 36.7; O2SAT 100
== END 2025-02-18 12:33 | disposition home or self-care (01) ==
PROVIDERS: Emergency Provider Emergency Medicine
DX: R19.7 Diarrhea, unspecified (principal); R10.10 Upper abdominal pain, unspecified; R51.9 Headache, unspecified; R11.2 Nausea with vomiting, unspecified; J45.909 Unspecified asthma, uncomplicated; Z03.818 Encounter for observation for suspected exposure to other biological agents ruled out
CPT/HCPCS: 0241U; 36415; 76705; 80048; 80076; 81003; 83690; 83735; 85025; 96361; 96374; 96375; 99284; J1885; J2405; J7120

== ENCOUNTER → 2025-02-18 08:31 | Outpatient (BNV) | payer OTHER, SELFPAY | PROVIDERS: Emergency Provider Emergency Medicine; Visit Provider Radiology Diagnostic Radiology | DX: R10.11 Right upper quadrant pain (principal) | CPT/HCPCS: 76705 ==

== ENCOUNTER 2025-03-15 06:13 | Emergency (ER) | payer OTHER, SELFPAY ==
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
[2025-03-15 06:19] VITALS: BP 120/80; PULSE 87; RESP 16; TEMP 36.6; O2SAT 100; BMI 23.8
--- NOTE | 2025-03-15 07:04 | PC.NURSE ---
Resumed care of patient at 0700, pt speaks very little Moh[place], interp needed. Pt is currently resting comfortably in bed, awaiting xrays and to be seen by a provider at this time. Pt reporting 10/10 pain at this time, call jeff given to patient
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
[2025-03-15] MEDS: Cyclobenzaprine HCl 10 MG TABLET PO (08:33)
[2025-03-15] MEDS: NaPROXEN 500 MG TABLET PO (08:33)
[2025-03-15 09:47] VITALS: BP 113/68; PULSE 72; RESP 16; TEMP 36.8; O2SAT 100
[2025-03-15 10:14] VITALS: BP 113/68; PULSE 72; RESP 16; TEMP 36.8; O2SAT 100
== END 2025-03-15 10:15 | disposition home or self-care (01) ==
PROVIDERS: Emergency Provider Emergency Medicine
DX: S39.012A Strain of muscle, fascia and tendon of lower back, initial encounter (principal); M54.2 Cervicalgia; R51.9 Headache, unspecified; R07.89 Other chest pain; V43.52XA Car driver injured in collision with other type car in traffic accident, initial encounter; Y93.9 Activity, unspecified; Y92.410 Unspecified street and highway as the place of occurrence of the external cause; Y99.8 Other external cause status
CPT/HCPCS: 71046; 72040; 72100; 99283; 99284

== ENCOUNTER → 2025-03-15 08:05 | Outpatient (BNV) | payer OTHER, SELFPAY | PROVIDERS: Emergency Provider Emergency Medicine; Visit Provider Radiology Diagnostic Radiology | DX: R07.9 Chest pain, unspecified (principal); M54.2 Cervicalgia; M54.50 Low back pain, unspecified | CPT/HCPCS: 71046; 72040; 72100 ==